=== PATIENT | male | born 1995 | race Two or more races ===

== ENCOUNTER 2018-06-28 19:53 | Emergency (ER) | payer OTHER ==
[~2018-06-28] VITALS: Ht 172.7 cm; Wt 70.0 kg
[2018-06-28 19:56] VITALS: BP 122/81
[2018-06-28] MEDS ORDERED: PROPARACAINE OPHTH 0.5%, 15ML ONE (20:10)
== END 2018-06-28 21:58 | disposition home or self-care (01) ==
LOC: ED 21:17
DX: S02.2XXA Fracture of nasal bones, initial encounter for closed fracture (principal); S02.40CA Maxillary fracture, right side, initial encounter for closed fracture; H10.33 Unspecified acute conjunctivitis, bilateral; W50.0XXA Accidental hit or strike by another person, initial encounter; Y93.89 Activity, other specified; Y92.89 Other specified places as the place of occurrence of the external cause; Y99.8 Other external cause status
CPT/HCPCS: 70486; 99284